=== PATIENT | female | born 1950 | race African-American/Black ===

== ENCOUNTER 2017-12-13 09:07 | Day surgery (SDC) | payer MEDICARE, OTHER ==
[2017-12-13] MEDS ORDERED: PROPOFOL 20 ML (10:55)
[2017-12-13] MEDS ORDERED: LIDOCAINE 100 MG SYRINGE (10:55)
== END 2017-12-13 11:21 | disposition home or self-care (01) ==
LOC: GIL 09:07
DX: K29.70 Gastritis, unspecified, without bleeding (principal); K21.9 Gastro-esophageal reflux disease without esophagitis; K44.9 Diaphragmatic hernia without obstruction or gangrene; E78.5 Hyperlipidemia, unspecified; I10 Essential (primary) hypertension; Z85.038 Personal history of other malignant neoplasm of large intestine
CPT/HCPCS: 43239; 87081